=== PATIENT | female | born 1990 | race African-American/Black ===

== ENCOUNTER 2016-10-22 23:53 | Emergency (ER) | payer MEDICAID ==
[~2016-10-22] VITALS: Ht 167.6 cm; Wt 104.3 kg
[~2016-10-22 23:53] MED LIST: ACETAMINOPHEN-1 EAC1 PO; ALBUTEROL SULF8.5 GM INH; ALPRAZOLAM0.25 MG ORAL; BACTRIM-DS1 EA ORAL; BENADRYL CRE1 APPLIC TOPIC; BENADRYL25 MG ORAL; CEPHALEXIN500 MG ORAL; IBUPROFEN400 MG PO; KEFLEX500 MG ORAL; NITROFURANTOIN100 M2 ORAL; NKM; NORCO 5-325 TA1 EACH PO; VICODIN 5-5001 EACH PO
[2016-10-23 00:46] LABS: APPEARANCE,URINE SLIGHTLY CLOUDY; KETONES,URINE NEGATIVE (NEGATIVE); LEUKOCYTE ESTERASE ,URINE 2+ (NEGATIVE); NITRITE,URINE NEGATIVE (NEGATIVE); PH,URINE 6 (4.5-8.0); PROTEIN,URINE 2+ (NEGATIVE); UROBILINOGEN,URINE 4 MG/DL (0.0-1.0)
[2016-10-23 01:05] LABS: BACTERIA,URINE MANY /HPF; SQUAMOUS EPITHELIAL CELL,UR MANY /LPF (NONE/OCC)
[2016-10-23 01:30] VITALS: BP 114/68
[2016-10-23] MEDS ORDERED: metroNIDAZOLE 500mg tab ORAL ONE (01:45)
--- NOTE | 2016-10-23 01:53 | Emergency Room Report ---
History of Present Illness General Chief Complaint: Female Urogenital Problems Source: Patient Present Illness HPI Is a 26-year-old female with no past medical history. She presents with chief complaint of vaginal itching and discharge. Onset for about a week now. This is occurred after having unprotected sexual intercourse with her boyfriend. There have history a CD. Denies any fever or chills. Worse with urination. Burning sensation. No other complaint. She thought that she may have a yeast infection. Does have some spotting with wiping. Allergies: Coded Allergies: No Known Allergies (Unverified , 05/23/12) Patient History Past Medical History: none Past Surgical History: none Pertinent Family History: none Social History: Denies: smoking Last Menstrual Period: OCTOBER 08 Now: No : 0 Para: 0 Immunizations: other Reviewed Nursing Documentation: PMH: Agreed, PSxH: Agreed Nursing Documentation-PM Hx Asthma: Yes Review of Systems Eye: Denies: blurred vision, eye pain ENT: Denies: ear pain, nose congestion, throat swelling Respiratory: Denies: cough, shortness of breath Cardiovascular: Denies: chest pain, palpitations Gastrointestinal: Denies: abdominal pain, diarrhea, nausea, vomiting Genitourinary: Reports: discharge Musculoskeletal: Denies: back pain, joint pain Skin: Denies: rash Neurological: Denies: headache, numbness Endocrine: Denies: increased thirst, increased urine Hematologic/Lymphatic: Denies: easy bruising All Other Systems: negative except mentioned in HPI Physical Exam Vital Signs Date Time Temp Pulse Resp B/P Pulse Ox O2 Delivery O2 Flow Rate FiO2 10/22/16 23:58 97.9 63 18 110/70 95 Room Air vitals normal Sp02 EP Interpretation: reviewed, normal General Appearance: well appearing, no apparent distress, alert Head: normocephalic, atraumatic Eyes: bilateral eye EOMI, bilateral eye PERRL ENT: hearing grossly normal, normal pharynx Neck: full range of motion, supple, no meningismus Respiratory: chest non-tender, lungs clear, normal breath sounds Cardiovascular #1: regular rate, rhythm, no murmur Gastrointestinal: normal bowel sounds, non tender, no mass, no organomegaly, no bruit, non-distended Genitourinary: adnexa normal, bladder normal, cervix normal, other - 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 There is a yellowish/whitish discharge. Musculoskeletal: back normal, gait/station normal, normal range of motion Psychiatric: mood/affect normal Skin: warm/dry Medical Decision Making Diagnostic Impression: Primary Impression: Trichomonal vaginitis ER Course Patient with positive for Trichomonas. Urine has bacterial but most likely secondary her discharge. We'll hold off antibiotics for UTI. Patient received Flagyl here. We'll discharge home. Recommend outpatient testing for HIV, syphilis, hepatitis, gonorrhea chlamydia to name a few. Last Vital Signs Date Time Temp Pulse Resp B/P Pulse Ox O2 Delivery O2 Flow Rate FiO2 10/22/16 23:58 97.9 63 18 110/70 95 Room Air Status: improved Disposition: HOME, SELF-CARE Condition: Stable Referrals: [facility]ERR[facility] (PCP) Additional Instructions: Followup with your DrJagruti in 7 days. Return if symptom worsen. Have your partner treated. Recommend anonymous testing for HIV, hepatitis, syphilis, gonorrhea, Chlamydia to name a few. CARINE TAYLOR M.D. October 23, 2016 01:53
[2016-10-23 02:07] VITALS: BP 114/68
== END 2016-10-23 02:07 | disposition home or self-care (01) ==
LOC: EMR 10-23 00:20
DX: A59.01 Trichomonal vulvovaginitis (principal); J45.909 Unspecified asthma, uncomplicated
CPT/HCPCS: 81003; 81025; 87086; 87210; 99282

== ENCOUNTER 2016-11-11 18:28 | Emergency (ER) | payer MEDICAID ==
[~2016-11-11] VITALS: Ht 167.6 cm; Wt 104.3 kg
[2016-11-11] MEDS ORDERED: TRAMADOL HCL50 MG ORAL (20:09)
[2016-11-11] MEDS ORDERED: IBUPROFEN600 MG ORAL (20:09)
[2016-11-11 20:14] VITALS: BP 114/60
--- NOTE | 2016-11-11 22:08 | Emergency Room Report ---
History of Present Illness General Chief Complaint: Lower Extremity Injury Source: Patient Present Illness HPI The patient is a 26-year-old female sent in for right foot pain which began yesterday. The patient states that she was climbing stairs and kicked the stair with her right foot and experienced immediate pain. Pain is described as a 10 out of 10 dull ache and does not radiate from the midfoot. Pain worse with walking. She also noticed swelling and bruising. She denies prior injury to the foot. She denies any other symptoms including nausea, vomiting, fever, chills, numbness or tingling Allergies: Coded Allergies: No Known Allergies (Unverified , 05/23/12) Patient History Past Medical History: see triage record Pertinent Family History: none Last Menstrual Period: 11/09/16 Now: No : 0 Para: 0 Reviewed Nursing Documentation: PMH: Agreed, PSxH: Agreed Nursing Documentation-PMH Past Medical History: No History, Except For Hx Asthma: Yes Review of Systems All Other Systems: negative except mentioned in HPI Physical Exam Vital Signs Date Time Temp Pulse Resp B/P Pulse Ox O2 Delivery O2 Flow Rate FiO2 11/11/16 18:41 98.2 88 15 113/62 97 Room Air Sp02 EP Interpretation: reviewed, normal General Appearance: no apparent distress, alert, GCS 15, non-toxic Head: normocephalic, atraumatic Eyes: bilateral eye PERRL, bilateral eye normal inspection Musculoskeletal: normal range of motion, swelling, tender - TTP over the R ventral distal 2nd and 3rd MTPJ Neurologic: alert, oriented x3, responsive, motor strength/tone normal, sensory intact, speech normal Psychiatric: judgement/insight normal, memory normal, mood/affect normal, no suicidal/homicidal ideation Skin: other - ecchymosis of the R lateral foot Procedures Splinting Splinting : Consent: Verbal Location: R foot Hand-Made Type: plaster Splint: poserior short Pre-Proc Neuro Vasc Exam: normal Post-Proc Neuro Vasc Exam: normal Patient Tolerated: Well Complications: None Medical Decision Making PA Attestation Dr. Bautista is my supervising physician. Patient management was discussed with my supervising physician Diagnostic Impression: Primary Impression: Fracture of metatarsal bone of right foot Qualified Codes: S92.324A - Nondisplaced fracture of second metatarsal bone, right foot, initial encounter for closed fracture ER Course The patient is a 26-year-old female sent in for right foot pain which began yesterday Ddx considered include but not limited to sprain/strain, fracture, contusion Physical exam: Vitals within normal limits. No apparent distress Right foot: There is tenderness to palpation and swelling to the second and third MTP joints. There is also ecchymosis. Full active range of motion of the ankle and toes. X-ray shows a fracture of the second MTP. The patient is placed in a posterior short leg splint and needs to followup with PMD. ER precautions given Other X-Ray Diagnostic Results Other X-Ray Diagnostic Results : Date: November 11, 2016 EP Interpretation: Yes Findings: no dislocation, no soft tissue swelling, other - Fx of 2nd MTP Number of Views: 3 PA Scribe Text I am acting as scribe for my supervising physician. My supervising physician's interpretation of the R foot xrays are there are no, dislocations or soft tissue swelling. There is a fracture of the 2nd MTP Last Vital Signs Date Time Temp Pulse Resp B/P Pulse Ox O2 Delivery O2 Flow Rate FiO2 11/11/16 20:14 66 14 114/60 99 Room Air 11/11/16 19:54 98.2 Status: improved Disposition: HOME, SELF-CARE Condition: Improved Scripts Tramadol Hcl* (ULTRAM*) 50 Mg Tablet 50 MG ORAL Q6H Y for For Pain, #10 TAB 0 Refills Prov: TERWESTLEYANCOLBY P.A. 11/11/16 Ibuprofen* (MOTRIN*) 600 Mg Tablet 600 MG ORAL Q8H Y for For Pain, #30 TAB 0 Refills Prov: TERWESTLEYANCOLBY P.A. 11/11/16 Patient Instructions: Metatarsal Fracture Additional Instructions: I discussed my findings with the patient. All questions and concerns have been answered. Treatment and medication compliance have been addressed. I advised the patient that they need to follow up with PMD in 3-5 days. Return to ED if pain remains or worsens, numbness or tingling occurs, new rash is noticed, fever is noticed, or if needed for any reason. Patient verbalized understanding of discharge instructions. COLBY PINEDA November 11, 2016 22:08
--- NOTE | 2016-11-12 12:19 | Diagnostic Imaging Report ---
Indication: PAIN Technique: 3 views right foot Comparison: none Findings: There is a nondisplaced fracture through the second metatarsal head neck junction. No other acute fractures. No dislocations. There is mild hallux valgus and metatarsus adductus. Impression: Positive for her second metatarsal head neck junction fracture. This agrees with the preliminary interpretation provided by the emergency room physician
== END 2016-11-11 20:14 | disposition home or self-care (01) ==
LOC: EMR 19:42
DX: S92.324A Nondisplaced fracture of second metatarsal bone, right foot, initial encounter for closed fracture (principal); W22.8XXA Striking against or struck by other objects, initial encounter; Y93.9 Activity, unspecified; Y92.9 Unspecified place or not applicable
CPT/HCPCS: 29515; 99284